=== PATIENT | female | born 1965 | race Caucasian/White ===

== ENCOUNTER 2018-02-27 10:35 | Emergency (ER) | payer BC ==
[~2018-02-27] VITALS: Ht 162.6 cm; Wt 81.2 kg
[~2018-02-27 10:35] MED LIST: AZIT; AZITHROMYCIN250 MG PO; DOXYCYCLINE HY100 MG PO; ESTRADIOL1 MG PO; GLIMEPIRIDE4 MG PO; KLOR-CON 1010 MEQ; LINZESS PO; MAXZIDE1 EA GT; METFORMIN HCL500 M1 PO; METFORMIN HCL500 M3; METFORMIN HCL500 MG PO; PULMICORT1 MG/2 ML; SINGULAIR10 MG PO; SYMBICORT 16010.2 GM INH; THEO PO; XOPENEX HFA15 GM NEB; XYZAL; Z.0.ADVAIR 500/501 E INH; Z.0.JANUVIA100 MG PO; Z.0.NEXIUM40 MG PO; Z.0.XYZAL5 MG PO; [UNRECOGNIZED DRUG - OTHER] MC; [UNRECOGNIZED DRUG - OTHER] PO
[2018-02-27] MEDS ORDERED: ALBUTEROL SULF 0.083% NEB SOLN 3 ML NEB NEB STA (10:37)
[2018-02-27 11:19] LABS: HEMATOCRIT 49.4 % (34.2-44.1); HEMOGLOBIN 16.2 g/dL (12.0-16.0); RED BLOOD COUNT 5.67 x10e6/uL (3.6-5.1)
[2018-02-27 11:20] LABS: BASOPHILS # (AUTO) 0.1 (0.0-0.1); BASOPHILS % 0.3 % (0.0-1.0); EOSINOPHILS % 0.1 % (0.0-6.0); LYMPHOCYTES # (AUTO) 3.9 (1.0-3.2); LYMPHOCYTES % 22.1 % (18.0-39.1); MEAN CORPUSCULAR HEMOGLOBIN 28.6 pg (28-32); MEAN CORPUSCULAR HGB CONC 32.8 g/dL (31-35); MEAN CORPUSCULAR VOLUME 87.1 fL (81-99); MONOCYTES # (AUTO) 1.3 (0.2-0.8); MONOCYTES % 7.4 % (4.4-11.3); NEUTROPHILS # (AUTO) 11.9 (2.1-6.9); NEUTROPHILS % 67.9 % (38.7-80.0); PLATELET COUNT 398 x10e3/uL (140-360); RED CELL DISTRIBUTION WIDTH 13.5 % (11.7-14.4)
[2018-02-27] MEDS ORDERED: METHYLPREDNISOLONE SOD SUCC 125 MG/2ML VIAL IV ONE (11:30)
[2018-02-27] MEDS ORDERED: IPRATROPIUM BROMIDE 0.02% 2.5 ML NEB NEB ONE (11:30)
[2018-02-27 12:38] LABS: ALANINE AMINOTRANSFERASE 29 IU/L (0-55); ALBUMIN 4.2 g/dL (3.5-5.0); ALBUMIN/GLOBULIN RATIO 1.4 (0.8-2.0); ALKALINE PHOSPHATASE 103 IU/L (40-150); ANION GAP 20.7 mmol/L (8-16); BLOOD UREA NITROGEN 36 mg/dL (7-26); BUN/CREATININE RATIO 36 (6-25); CALCIUM 10.2 mg/dL (8.4-10.2); CARBON DIOXIDE 21 mmol/L (22-29); CHLORIDE 105 mmol/L (98-107); CREATINE KINASE 79 IU/L (29-168); CREATININE, SERUM 1.01 mg/dL (0.57-1.11); EST GLOMERULAR FILTRATION RATE 57 ML/MIN (60-); GLUCOSE 110 mg/dL (74-118); POTASSIUM 3.7 mmol/L (3.5-5.1); SODIUM 143 mmol/L (136-145)
--- NOTE | 2018-02-27 13:13 | Diagnostic Imaging Report ---
Examination: Single AP view of the chest. COMPARISON: None. INDICATION: Shortness of breath DISCUSSION: The lungs are well-inflated. No focal airspace consolidation, pleural effusion, or pneumothorax. Cardiomediastinal contour and pulmonary vasculature are within normal limits. No acute osseous abnormality. IMPRESSION: No acute cardiopulmonary abnormality. Signed by: Dr. Edi Luz M.D. on 02/27/2018 1:09 PM
[2018-02-27 13:30] LABS: ALBUMIN 3.9 g/dL (3.5-5.0); ALBUMIN/GLOBULIN RATIO 1.4 (0.8-2.0); ANION GAP 19.9 mmol/L (8-16); CALCIUM 9.7 mg/dL (8.4-10.2); CREATININE, SERUM 1.17 mg/dL (0.57-1.11); POTASSIUM 3.9 mmol/L (3.5-5.1)
[2018-02-27] MEDS ORDERED: ALBUTEROL1.25 MG/3 INH (14:30)
[2018-02-27] MEDS ORDERED: IPRAT-ALBUT 0.5-3 ML INH (14:39)
== END 2018-02-27 15:44 | disposition home or self-care (01) ==
LOC: ER 10:35
DX: R06.00 Dyspnea, unspecified (principal); R06.2 Wheezing; J45.42 Moderate persistent asthma with status asthmaticus
CPT/HCPCS: 36415; 71045; 80053; 82550; 82553; 84484; 85025; 87400; 94640 ×2; 94660; 99284; J2930

== ENCOUNTER → 2018-08-15 | Outpatient (CLI) | payer BC ==
[~2018-08-15] MED LIST changes: +ALBUTEROL1.25 MG/3 INH; +IPRAT-ALBUT 0.5-3 ML INH
--- NOTE | 2018-08-16 09:09 | Diagnostic Imaging Report ---
#[id number] - MGDXBIL #BILATERAL DIGITAL DIAGNOSTIC MAMMOGRAM WITH CAD: 08/15/2018 Comparison is made to exams dated: 12/05/2016 mammogram, 01/01/2018 mammogram, 12/17/2015 mammogram and 06/30/2013 mammogram - [facility]. Current study contains 6 films. There are scattered fibroglandular elements in both breasts. Current study was also evaluated with a Computer Aided Detection (CAD) system. There are benign calcification in both breast. A palpable mass marker is noted in the upper outer aspect of the left breast without corresponding mammographic abnormality. No significant masses, calcifications, or other findings are seen in either breast. There has been no significant interval change. IMPRESSION: BENIGN There is no mammographic evidence of malignancy. A 1 year screening mammogram is recommended. Since the patient feels an abnormality a focused ultrasound exam will follow this study today. Jim Avendaño Jr., D.O. cw/:08/15/2018 15:53:47 Flux Plant Operator: Brittany GOTTI)(Collin), [facility] letter sent: Normal Exam Mammogram BI-RADS: 2 Benign
--- NOTE | 2018-08-16 09:10 | Diagnostic Imaging Report ---
#[id number] - USBRELIMLT ULTRASOUND OF THE LEFT BREAST : 08/15/2018 Comparison is made to exams dated: 08/15/2018 mammogram - [facility] and 01/01/2018 mammogram - [facility]. Color flow and real-time ultrasound were performed on the left breast in the upper outer aspect where the patient feels an abnormality. -There is no cystic or solid mass noted. IMPRESSION: NEGATIVE There is no sonographic evidence of malignancy. A 1 year screening mammogram is recommended. Jim Avendaño Jr., D.O. cw/:08/15/2018 15:59:15 Pinsetter Mechanic Helper: VAHE MATOS RDMS, [facility] letter sent: Normal Exam Ultrasound BI-RADS: 1 Negative
== END ==
LOC: MAMMO 13:19
PROVIDERS: ATTEND Obstetrics & Gynecology
DX: R92.1 Mammographic calcification found on diagnostic imaging of breast (principal)
CPT/HCPCS: 77066

== ENCOUNTER 2019-05-15 10:51 | Emergency (ER) | payer BC ==
[~2019-05-15] VITALS: Ht 157.5 cm; Wt 77.1 kg
--- OUTSIDE RECORDS SUMMARY | 2019-05-15 10:55 | XMS REPORT ---
Author [facility] Address Unknown Phone Unavailable Care Team Providers Care Nurse Sitter Name Role Phone COLLINS MENDOZA Unavailable Unavailable Dayana GIRARD Unavailable Unavailable Payers Payer Name Policy Type Policy Number Effective Date Expiration Date Problems This patient has no known problems. Allergies, Adverse Reactions, Alerts Allergy Name Allergy Type Status Severity Reaction(s) Onset Date Inactive Date Treating Clinician Comments hydrocodone DA Active U 2019-02-27 00:00:00 aspirin DA Active U 2019-02-27 00:00:00 acetaminophen DA Active U 2019-02-27 00:00:00 clavulanic acid DA Active U 2019-02-27 00:00:00 cefuroxime DA Active U 2019-02-27 00:00:00 clarithromycin DA Active U 2019-02-27 00:00:00 amoxicillin DA Active U 2019-02-27 00:00:00 moxifloxacin DA Active U 2019-02-27 00:00:00 hydrocodone DA Active U 2008-07-19 00:00:00 aspirin DA Active U 2008-07-19 00:00:00 acetaminophen DA Active U 2008-07-19 00:00:00 cefuroxime DA Active U 2008-07-19 00:00:00 clarithromycin DA Active U 2008-07-19 00:00:00 ASPIRIN DA Active U 2007-03-25 00:00:00 AUGMENTIN DA Active U 2007-03-25 00:00:00 CODEINE DA Active U 2007-03-25 00:00:00 HYDROCODONE DA Active U 2007-03-25 00:00:00 No Known Contrast Allergies DA Active U 2007-03-25 00:00:00 No Known Food Allergies DA Active U 2007-03-25 00:00:00 No Known Other Allergies DA Active U 2007-03-25 00:00:00 Medications This patient has no known medications. Encounters Start Date/Time End Date/Time Encounter Type Admission Type Attending [facility] Care Department Encounter ID 2019-03-17 08:10:13 Outpatient [facility] [id number] 2019-01-29 15:15:17 Outpatient [facility] [id number] Results Test Description Test Time Test Comments Text Results Atomic Results Result Comments GLUBED 2019-02-27 18:58:00 GLUBED (test code=GLUBED) 229 mg/dL 74-106 Performed by certified anode machine operator at [facility] [id number] 18:39:00* Test Item Value Reference Range Comments GLUBED (test code=GLUBED) 246 mg/dL 74-106 Performed by certified anode machine operator at [facility] [id number] 18:07:00* Test Item Value Reference Range Comments GLUBED (test code=GLUBED) 233 mg/dL 74-106 Performed by certified anode machine operator at [facility] [id number] 18:07:00* Test Item Value Reference Range Comments GLUBED (test code=GLUBED) 195 mg/dL 74-106 Performed by certified anode machine operator at [facility] [id number] 18:07:00* Test Item Value Reference Range Comments GLUBED (test code=GLUBED) 150 mg/dL 74-106 Performed by certified anode machine operator at [facility] [id number] 18:07:00* Test Item Value Reference Range Comments GLUBED (test code=GLUBED) 120 mg/dL 74-106 Performed by certified anode machine operator at [facility] BASIC METABOLIC [id number] 16:42:00* Test Item Value Reference Range Comments SODIUM (test code=NA) 146 mmol/L 136-145 POTASSIUM (test code=K) 3.4 mmol/L 3.5-5.1 CHLORIDE (test code=CL) 106 mmol/L 101-109 CARBON DIOXIDE (test code=CO2) 26.6 mmol/L 21-32 ANION GAP (test code=GAP) 17 mmol/L 10-20 GLUCOSE (test code=GLU) 138 mg/dL 74-106 BLOOD UREA NITROGEN (test code=BUN) 24 mg/dL 3-21 GLOMERULAR FILTRATION RATE (test code=GFR) 57 mL/min >=60 Estimated GFR by using Modified MDRD formula.Chronic kidney disease is defined as either kidney damageor GFR <60 mL/min/1.73 m2 for >3 months. CREATININE (test code=CREAT) 1.01 mg/dL 0.55-1.3 BUN/CREATININE RATIO (test code=BUN/CREA) 23.8 10-20 CALCIUM (test code=CA) 9.1 mg/dL 8.4-10.2 HEPATIC FUNCTION [id number] 16:42:00* Test Item Value Reference Range Comments TOTAL PROTEIN (test code=PROT) 7.0 g/dL 6.5-8.4 ALBUMIN (test code=ALB) 3.9 g/dL 3.4-4.8 GLOBULIN (test code=GLOB) 3.1 G/DL 1-10 ALBUMIN/GLOBULIN RATIO (test code=A/G) 1.26 RATIO 0.75-1.50 BILIRUBIN TOTAL (test code=BILT) 0.30 mg/dL 0.0-1.0 BILIRUBIN DIRECT (test code=BILD) 0.10 mg/dL 0.0-0.30 SGOT/AST (test code=AST) 14 U/L 6-32 SGPT/ALT (test code=ALT) 40 U/L 12-78 Note: Change in REFERENCE RANGE due to new reagent method. ALKALINE PHOSPHATASE TOTAL (test code=ALKP) 106 U/L 38-126 BASIC METABOLIC [id number] 16:41:00* Test Item Value Reference Range Comments SODIUM (test code=NA) 146 mmol/L 136-145 POTASSIUM (test code=K) 3.4 mmol/L 3.5-5.1 CHLORIDE (test code=CL) 106 mmol/L 101-109 CARBON DIOXIDE (test code=CO2) 26.6 mmol/L 21-32 ANION GAP (test code=GAP) 17 mmol/L 10-20 GLUCOSE (test code=GLU) 138 mg/dL 74-106 BLOOD UREA NITROGEN (test code=BUN) 24 mg/dL 3-21 GLOMERULAR FILTRATION RATE (test code=GFR) 57 mL/min >=60 Estimated GFR by using Modified MDRD formula.Chronic kidney disease is defined as either kidney damageor GFR <60 mL/min/1.73 m2 for >3 months. CREATININE (test code=CREAT) 1.01 mg/dL 0.55-1.3 BUN/CREATININE RATIO (test code=BUN/CREA) 23.8 10-20 CALCIUM (test code=CA) 9.1 mg/dL 8.4-10.2 HEPATIC FUNCTION [id number] 16:41:00* Test Item Value Reference Range Comments TOTAL PROTEIN (test code=PROT) gram/dL 6.4-8.2 ALBUMIN (test code=ALB) g/dL 3.4-5.0 GLOBULIN (test code=GLOB) g/dL 2.7-4.2 ALBUMIN/GLOBULIN RATIO (test code=A/G) 0.75-1.50 BILIRUBIN TOTAL (test code=BILT) mg/dL 0.2-1.2 BILIRUBIN DIRECT (test code=BILD) mg/dL 0.0-0.20 SGOT/AST (test code=AST) IUnit/L 15-37 SGPT/ALT (test code=ALT) U/L 10-69 ALKALINE PHOSPHATASE TOTAL (test code=ALKP) IUnit/L 45-117 US BREAST LIMITED [id number] 14:48:00 [place] [address] Patient Name: JAH WALTERS MR #: [id number] : 1965 Age/Sex: 53/F Req #: [id number] Adm Physician: Ordered by: COLLINS MENDOZA MD Report #: [id number] Location: MAMMO Room/Bed: Procedure: [id number] US/U S BREAST LIMITED LEFT Exam Date: Exam Time: REPORT STATUS: Signed #[id number] - USBRELIMLT ULTRASOUND OF THE LEFT BREAST : 08/15/2018 Comparison is made to exams dated: 08/15/2018 mammogram - [facility] and mammogram - [facility]. Color flow and real-time ultrasound were perf ormed on the left breast in the upper outer aspect where the patient feels an abnormality. -There is no cystic or solid mass noted. IMPRE SSION: NEGATIVE There is no sonographic evidence of malignancy. A 1 year screening mammogram is recommended. Jim Avendaño Jr., D.O. cw/:08/15/2018 15:59:15 Buttonhole Marker: VAHE MATOS [facility], [facility] letter sent: Normal Exam Ultrasound BI-RADS: 1 Negative Di ctated By: JIM AVENDAÑO DO 58 COPY TO: COLLINS MENDOZA MAMMOGRAPHY DIGITAL DX [id number] 14:44:00 [place] [address] Patient Name: JAH WALTERS MR #: [id number] : 1965 Age/Sex: 53/F Req #: [id number] Adm Physician: Ordered by: COLLINS MENDOZA MD Report #: [id number] Location: MAMMO Room/Bed: Procedure: [id number] MG/M AMMOGRAPHY DIGITAL DX BILAT Exam Date: 08/15/18 Exam Time: 1355 REPORT STATUS: Signed #[id number] - MGDXBIL #BILATERAL DIGITAL DIAGNOSTIC MAMMOGRAM WITH CAD: 08/15/2018 Comparison is made to exams dated: 12/05/2016 mammogram, 01/01/2018 mammogram, 12/17/2015 mammogram and 06/30/2013 mammogram - [facility] Current udy contains 6 films. There are scattered fibroglandular elements in both br easts. Current study was also evaluated with a Computer Aided Detection (CAD ) system. There are benign calcification in both breast. A palpable mass mar ker is noted in the upper outer aspect of the left breast without correspondi ng mammographic abnormality. No significant masses, calcifications, or othe r findings are seen in either breast. There has been no significant interval change. IMPRESSION: BENIGN There is no mammographic evidence of malignan cy. A 1 year screening mammogram is recommended. Since the patient feels an abnormality a focused ultrasound exam will follow this study today. Cata Avendaño Jr., D.O. cw/:08/15/2018 15:53:47 Imaging Technolog ist: Brittany LOPEZ(R)(M), [facility] letter sent: Normal Exam Mammogram BI-RADS: 2 Benign Dictated By: JIM RAMSEY lectronically Signed By: JIM AVENDAÑO DO on 08/15/18 0051 Transcribed By: RENETTA ASHLEY on 08/15/18 155 COPY TO: COLLINS MENDOZA MD CHEST SINGLE (PORTABLE)2018-02-27 13:07:00 [place] [address] Patient Name: JAH WALTERS MR #: [id number] : 1965 Age/Sex: 52/F Req #: [id number] Adm Physician: Ordered by: PACO GIRARD MD Report #: [id number] Location: ER Room/Bed: Procedure: [id number] DX/CHEST SINGLE (PORTABLE) E xam Date: 02/27/18 Exam Time: 1235 REPORT STATU S: Signed Examination: Single AP view of the chest. COMPARISON: None. INDICATION: Shortness of breath DISCUSSION: The lungs are well- inflated. No focal airspace consolidation, pleural effusion, or pneumothorax. Cardiomediastinal contour and pulmonary vasculature are within normal limits. No acute osseous abnormality. IMPRESSION: No acute cardiopulmonary a bnormality. Signed by: Dr. Collins Pak M.D. on 02/27/2018 1:09 PM Dictated By: COLLINS PAK MD 1304 Transcribed By: DELORES on 02/27/18 1309 COPY TO: PACO GIRARD MD
--- OUTSIDE RECORDS SUMMARY | 2019-05-15 10:55 | XMS REPORT | Summary of Care ---
Author Author DANIELITO Gutierres, ABE Em Unknown Address Unknown Phone Unavailable Care Team Providers Care Circular Sawyer Stone Name Role Phone AUGUSTINE P.Edmund., SHONDA Unavailable Unavailable DANIELITO Gutierres, ABE Unavailable Unavailable COURTNEY N.P., ERIC Unavailable Unavailable KENNA Sanchez, RITA Unavailable Unavailable ABIGAIL Sanchez, NEAL Unavailable Unavailable OLU N.P., TEVIN Unavailable Unavailable ASHER Sanchez, MICHELL Unavailable Unavailable KENNA BECKER IA, RITA COOPER Unavailable Unavailable Rell BECKER, Erasmo Unavailable Unavailable ASHER BECKER IA, MICHELL CLARKE Unavailable Unavailable AUGUSTINE BOLTON, SHONDA Unavailable Unavailable Abigail BECKER, Neal Unavailable Unavailable CATERINA BECKER, STARLA Anne Unavailable Unavailable MARCEL LINTON MD, COLLINS Shaffer Unavailable Unavailable ANDREA SERNA, JANIA Ybarra Unavailable Unavailable Unavailable Unavailable Functional Status Name Dates Details Functional status health issues are not documented Status: Name Dates Details Cognitive status health issues are not documented Status: Problems Name Dates Details Cystocele, midline (618.01, N81.11) Status: Active Alopecia (704.00, L65.9) Status: Active Diverticulitis of rectosigmoid (562.11, K57.32) Status: Active Financial difficulties (V60.2, Z59.8) Status: Active Abnormal thyroid function test (794.5, R94.6) Status: Active Hypercalcemia (275.42, E83.52) Status: Active Leukocytosis (288.60, D72.829) Status: Active Need for influenza vaccination (V04.81, Z23) Status: Active Herpes simplex virus infection (054.9, B00.9) Status: Active Anxiety (300.00, F41.9) Status: Active Non compliance with medical treatment (V15.81, Z91.19) Status: Active Hypokalemia (276.8, E87.6) Status: Active Edema (782.3, R60.9) Status: Active COPD, moderate (496, J44.9) Status: Active BMI 32.0-32.9,adult (V85.32, Z68.32) Status: Active Vitamin D deficiency (268.9, E55.9) Status: Active Vitamin B12 deficiency (266.2, E53.8) Status: Active Right knee pain (719.46, M25.561) Status: Active Rotator cuff tear arthropathy (716.81, M75.100) Status: Active GERD (gastroesophageal reflux disease) (530.81, K21.9) Status: Active Patellofemoral pain syndrome of right knee (719.46, M22.2X1) Status: Active Hypertension (401.9, I10) Status: Active Loose body of right knee (717.6, M23.41) Status: Active Psoriasis (696.1, L40.9) Status: Active Hematuria (599.70, R31.9) Status: Active 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, 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) Status: Active Maltracking of right patella (719.86, M22.8X1) Status: Active Pelvic pain in female (625.9, R10.2) Status: Active Irritable bowel syndrome with constipation (564.1, K58.1) Status: Active Dysuria (788.1, R30.0) Status: Active Dyspareunia, female (625.0, N94.10) Status: Active Vaginal atrophy (627.3, N95.2) Status: Active SUSHMA (stress urinary incontinence, female) (625.6, N39.3) Status: Active Increased frequency of urination (788.41, R35.0) Status: Active Interstitial cystitis (595.1, N30.10) Status: Active Vestibulitis, vulvar (625.71, N94.810) Status: Active Rectocele, female (618.04, N81.6) Status: Active Constipation (564.00, K59.00) Status: Active BMI 31.0-31.9,adult (V85.31, Z68.31) Status: Active Acute maxillary sinusitis (461.0, J01.00) Status: Active Mild intermittent asthma with acute exacerbation (493.92, J45.21) Status: Active Acute bacterial bronchitis (466.0, J20.8) Status: Active Yeast vaginitis (112.1, B37.3) Status: Active Urgency of urination (788.63, R39.15) Status: Active Diabetes mellitus (250.00, E11.9) Status: Active Cervical neck pain with evidence of disc disease (722.91, M50.90) Status: Active Pain and numbness of right upper extremity (729.5, M79.601) Status: Active Medications Name Dates Details metFORMIN HCl ER 500 MG Oral Tablet Extended Release 24 Hour TAKE 2 TABLETS TWICE A DAY WITH BREAKFAST AND DINNER Quantity: 360 MICHELL STERLING M.D. * Start : 22-Dec-2014 Active Ventolin HFA 108 (90 Base) MCG/ACT Inhalation Aerosol Solution INHALE 1 TO 2 PUFFS EVERY 4 TO 6 HOURS NEEDED. * Quantity: 1 Refills: 0 ESTEVES N.P., ABE * Start : 08-May-2014 Active 18 GM Inhaler Symbicort 160-4.5 MCG/ACT Inhalation Aerosol INHALE 2 PUFFS TWICE DAILY. RINSE MOUTH AFTER USE. * Quantity: 1 Refills: 5 RAINES N.P., TEVIN * Start : 09-Oct-2013 Active 10.2 GM Inhaler Clobetasol Propionate 0.05 % External Foam APPLY SPARINGLY TO AFFECTED AREA(S) TWICE DAILY * Quantity: 1 Refills: 1 RAINES N.P., TEVIN * Start : 06-Apr-2015 Active 100 GM Can Montelukast Sodium 10 MG Oral Tablet TAKE 1 TABLET BY MOUTH ONCE A DAY * Quantity: 90 Refills: 3 AUGUSTINE P.A., SHONDA * Start : 07-Jun-2017 Active Budesonide 1 MG/2ML Inhalation Suspension USE 1 UNIT DOSE VIA NEBULIZER TWICE DAILY * Quantity: 180 Refills: 2 AUGUSTINE P.A., SHONDA * Start : 21-Oct-2015 Active 30 x 2 ML Plas Cont Levalbuterol HCl - 1.25 MG/0.5ML Inhalation Nebulization Solution TAKE 1 VIAL IN NEBULIZER 3 TIMES A DAY. * Quantity: 3 Refills: 3 AUGUSTINE P.A., SHONDA * Start : 21-Oct-2015 Active 30 Milliliter Plas Cont Clotrimazole-Betamethasone 1-0.05 % External Cream APPLY AND RUB IN A THIN FILM TO AFFECTED AREAS TWICE DAILY.(AM AND PM). * Quantity: 1 Refills: 2 AUGUSTINE P.ASHONDA Vogt * Start : 30-Aug-2017 Active 45 GM Tube Fluticasone Propionate 50 MCG/ACT Nasal Suspension USE 2 SPRAYS IN EACH NOSTRIL ONCE DAILY * Quantity: 1 Refills: 6 COURTNEY Devine.ERIC Izaguirre * Start : 16-Mar-2017 Active 9.9 ML Bottle Fasenra 30 MG/ML Subcutaneous Solution Prefilled Syringe * Refills: 0 * Start : 01-Nov-2017 Active Milliliter Sucralfate 1 GM Oral Tablet TAKE 1 TABLET EVERY 12 HOURS DAILY. * Quantity: 30 Refills: 1 RITA PIERSON M.D. * Start : 15-Mar-2018 Active Triamterene-HCTZ 37.5-25 MG Oral Tablet TAKE 1 TABLET BY MOUTH EVERY DAY. NEED OV * Quantity: 30 Refills: 2 AUGUSTINE Henning.ASHONDA Vogt Active OneTouch Verio w/Device Kit use to check blood sugar as directed * Quantity: 1 Refills: 0 MICHELL STERLING M.D. * Start : 21-Aug-2018 Active Ipratropium-Albuterol 0.5-2.5 (3) MG/3ML Inhalation Solution USE 1 UNIT DOSE VIA NEBULIZER THREE TIMES DAILY. * Quantity: 1 Refills: 2 OLU Devine.TEVIN Izaguirre * Start : 16-Mar-2017 Active 60 x 3 ML Plas Cont raNITIdine HCl - 150 MG Oral Tablet TAKE 1 TABLET BY MOUTH TWICE DAILY * Quantity: 60 Refills: 3 NEAL HAYES M.D. * Start : 02-Sep-2018 Active Tums Ultra 1000 1000 MG Oral Tablet Chewable 1 PO QD * Refills: 0 MICHELL STERLING M.D. * Start : 12-Sep-2018 Active Vitamin D 1000 UNIT TABS TAKE 1 TABLET DAILY. * Quantity: 90 Refills: 1 MICHELL STERLING M.D. * Start : 12-Sep-2018 Active Vitamin B-12 1000 MCG Oral Tablet TAKE 1 TABLET ONCE A WEEK * Quantity: 90 Refills: 1 MICHELL STERLING M.D. * Start : 12-Sep-2018 Active Lansoprazole 30 MG Oral Capsule Delayed Release TAKE ONE CAPSULE DAILY FOR ACID REFLUX * Quantity: 90 Refills: 1 SHONDA FIGUEROA * Start : 24-Jun-2018 Active Meloxicam 15 MG Oral Tablet TAKE 1 TABLET DAILY NEEDED. * Quantity: 30 Refills: 1 SHONDA FIGUEROA * Start : 02-Oct-2018 Active Cyclobenzaprine HCl - 10 MG Oral Tablet TAKE 1 TABLET AT BEDTIME NEEDED. * Quantity: 30 Refills: 1 SHONDA FIGUEROA * Start : 02-Oct-2018 Active Linzess 290 MCG Oral Capsule TAKE 1 CAPSULE DAILY * Quantity: 90 Refills: 3 NEAL HAYES M.D. * Start : 02-Sep-2018 Active Lactulose 10 GM/15ML Oral Solution TAKE 15 ML DAILY. * Quantity: 1350 Refills: 3 NEAL HAYES M.D. * Start : 13-Feb-2018 Active Mometasone Furoate 50 MCG/ACT Nasal Suspension USE 1 SPRAY IN EACH NOSTRIL TWICE DAILY. * Quantity: 1 Refills: 6 OLU N.PTEVIN Vogt * Start : 28-Jan-2019 Active 17 GM Inhaler Albuterol Sulfate (2.5 MG/3ML) 0.083% Inhalation Nebulization Solution USE 1 UNIT DOSE IN NEBULIZER EVERY 4 TO 6 HOURS NEEDED. * Quantity: 6 Refills: 1 SHONDA FIGUEROA * Start : 02-Feb-2017 Active 60 x 3 ML Plas Cont Ipratropium [place] 0.02 % Inhalation Solution USE 1 UNIT DOSE IN NEBULIZER FOUR TIMES A DAY * Quantity: 6 Refills: 1 SHONDA FIGUEROA * Start : 05-Feb-2019 Active 60 x 2.5 ML Vial Glimepiride 4 MG Oral Tablet 1/2 tablet-1 tablet po bid before breakfast and dinner * Quantity: 180 Refills: 1 MICHELL STERLING M.D. * Start : 28-Mar-2017 Active Lisinopril 5 MG Oral Tablet 1 tablet po qd * Quantity: 90 Refills: 1 MICHELL STERLING M.D. * Start : 08-Oct-2017 Active NovoLOG FlexPen 100 UNIT/ML Subcutaneous Solution Pen-injector inject tid ac using correction factor 1:40 with target 120:MDD 15u * Quantity: 1 Refills: 1 MICHELL STERLING M.D. * Start : 10-Mar-2018 Active 5 x 3 ML Pen Pioglitazone HCl - 15 MG Oral Tablet Take 2-3 tablets a day for blood sugar * Quantity: 270 Refills: 1 ASHER Sanchez, MICHELL * Start : 25-Feb-2018 Active OneTouch Delica Plus [id number] use to check blood sugars 4x/day * Quantity: 3 Refills: 1 ASHER Sanchez, MICHELL * Start : 21-Aug-2018 Active 100 Unit Box Jardiance 10 MG Oral Tablet TAKE 1 TABLET BY MOUTH ONCE DAILY * Quantity: 90 Refills: 1 ASHER Sanchez, MICHELL * Start : 23-Sep-2018 Active OneTouch Verio In Vitro Strip use to check blood sugar 4x/day * Quantity: 3 Refills: 1 ASHER Sanchez, MICHELL * Start : 21-Aug-2018 Active 100 Strip Box Trulicity 0.75 MG/0.5ML Subcutaneous Solution Pen-injector inject 0.75 mg sq qweek * Quantity: 3 Refills: 1 MICHELL STERLING M.D. * Start : 23-Sep-2018 Active 4 x 0.5 ML Pen BD Pen Needle Bettye U/F 32G X 4 MM use to inject insulin 3x/day sq * Quantity: 3 Refills: 1 ASHER Sanchez, MICHELL * Start : 12-Feb-2019 Active 100 Unit Box Ibuprofen 600 MG Oral Tablet * Refills: 0 Active Meloxicam 15 MG Oral Tablet TAKE 1 TABLET BY MOUTH DAILY WITH FOOD * Quantity: 30 Refills: 1 RAINES N.P., TEVIN * Start : 03-Dec-2018 Active Allergies and Adverse Reactions Name Dates Details Aspirin TABS (Allergy) Status: Active Augmentin TABS (Allergy) Status: Active Avelox TABS (Allergy) Status: Active Biaxin TABS (Allergy) Status: Active cefdinir (Adverse Event) Status: Active Codeine Sulfate SOLN (Allergy) Status: Active Vicodin TABS (Allergy) Status: Active Past Medical History Name Dates Details History of acute gastritis (V12.70, Z87.19) Status: Resolved History of alopecia (V13.89, Z87.898) Status: Resolved History of Asthma exacerbation (493.92, J45.901) Status: Resolved History of Calcaneal spur (726.73, M77.30) Status: Resolved History of Calcium oxalate crystals in urine (791.9, R82.998) Status: Resolved History of Diabetes mellitus, type 2 (250.00, E11.9) Status: Resolved History of dysuria (V13.00, Z87.898) Status: Resolved History of External hemorrhoids (455.3, K64.4) Status: Resolved History of fatigue (V13.89, Z87.898) Status: Resolved History of Gallbladder disease (575.9, K82.9) Status: Resolved History of gastroenteritis (V12.79, Z87.19) Status: Resolved History of Leg cramps (729.82, R25.2) Status: Resolved History of Lower abdominal pain of unknown etiology (789.09, R10.30) Status: Resolved History of Numbness and tingling (782.0, R20.0) Status: Resolved History of Occipital neuralgia of right side (723.8, M54.81) Status: Resolved History of Pain in joint of left shoulder (719.41, M25.512) Status: Resolved History of painful urination (V13.89, Z87.898) Status: Resolved History of pneumococcal vaccination (V49.89, Z92.29) Status: Resolved History of psoriasis (V13.3, Z87.2) Status: Resolved History of Right shoulder pain (719.41, M25.511) Status: Resolved History of sinusitis (V12.69, Z87.09) Status: Resolved History of Tear of right rotator cuff, unspecified tear extent (840.4, M75.101) Status: Resolved History of Tendinitis of right rotator cuff (726.10, M75.81) Status: Resolved History of Tension type headache (339.10, G44.209) Status: Resolved Procedures Procedure Dates Details Post Op Promis 29 Survey Date: 21-Jan-2019 [[facility]] CMP W/EGFR Date: 14-Mar-2019 MRI Spine cervical wo contrast 10611 Date: 18-Mar-2019 MRI Spine cervical wo contrast 88283 Date: 18-Mar-2019 History of Hysterectomy Completed History of Sinus Surgery Completed History of Cholecystectomy Completed History of Knee surgery Completed Immunization Name Dates Details Prevnar 13 Intramuscular Suspension Lot #: [id number] on: 15-Mar-2018 Fluzone Quadrivalent 0.5 ML Intramuscular Suspension Lot #: [id number] on: 15-Mar-2018 Tdap Lot #: [id number] on: 09-Sep-2018 Family History Name Dates Details Family history of myocardial infarction (V17.3, Z82.49) Status: Active Family history of cardiac pacemaker (V17.49, Z82.49) Status: Active Family history of hypertension (V17.49, Z82.49) Status: Active Family history of diabetes mellitus (V18.0, Z83.3) Status: Active Name Dates Details Family history of Lung Cancer (V16.1) Status: Active Name Dates Details Family history of malignant neoplasm of breast (V16.3, Z80.3) Status: Active Family history of diabetes mellitus (V18.0, Z83.3) Status: Active Social History Name Dates Details - Status: Name Dates Details Never smoker Vital Signs Date Test Result Details [id number] BP Systolic 110 mm[Hg] Status: Comments: Location: LUE; Position: Sitting BP Diastolic 70 mm[Hg] Status: Comments: Location: LUE; Position: Sitting Height 62 in Status: Weight 175 lb Status: Body Mass Index Calculated 32.01 kg/m2 Status: Body Surface Area Calculated 1.81 m2 Status: Temperature 97 f Status: Comments: Method: Temporal Heart Rate 90 /min Status: Respiration Rate 16 /min Status: Physical Findings 7.5 Status: Comments: Pain Scale Results Date Description Value Details Results not documented Plan of Care Name Dates Details Planned Observations Planned Goals not documented Planned Encounters Appointment; JANIA MENDEZ D.O. On: 31-Mar-2019 9:20 Appointment; COLLINS ROD M.D. On: 31-Mar-2019 9:30 Appointment; MICHELL STERLING M.D. On: 14-May-2019 9:00 Appointment; NEAL HAYES M.D. On: 28-Nov-2019 13:15 Appointment; ERASMO RO M.D. On: 09-Dec-2019 12:20 Instructions Name Dates Details Instructions not documented Encounters Appointment; ERROL CO[address]MAN [address] Encounter Diagnosis: Problem not documented On: 20-Mar-2017 10:00 Appointment; MICHELL STERLING M.D. Encounter Diagnosis: Problem not documented On: 28-Mar-2017 9:20 Appointment; MICHELL STERLING M.D. Encounter Diagnosis: Problem not documented On: 23-Apr-2017 9:00 Appointment; SHONDA BRADSHAW P.A. Encounter Diagnosis: Problem not documented On: 26-Apr-2017 9:30 Appointment; MICHELL STERLING M.D. Encounter Diagnosis: Problem not documented On: 08-May-2017 9:00 Appointment; SHONDA BRADSHAW P.ASin Encounter Diagnosis: Problem not documented On: 23-May-2017 9:30 Appointment; SHONDA BRADSHAW P.ASin Encounter Diagnosis: Problem not documented On: 29-May-2017 15:00 Appointment; MICHELL STERLING M.D. Encounter Diagnosis: Problem not documented On: 06-Jun-2017 10:40 Appointment; ERROL COLEMAN RD Encounter Diagnosis: Problem not documented On: 05-Jul-2017 10:00 Appointment; MICHELL STERLING M.D. Encounter Diagnosis: Problem not documented On: 14-Aug-2017 10:00 Appointment; SHONDA BRADSHAW PSinASin Encounter Diagnosis: Problem not documented On: 30-Aug-2017 8:30 Appointment; SHONDA BRADSHAW PSinASin Encounter Diagnosis: Problem not documented On: 12-Sep-2017 10:30 Appointment; MIKE WILLIS P.A. Encounter Diagnosis: Problem not documented On: 18-Sep-2017 8:30 Appointment; ERASMO RO M.D. Encounter Diagnosis: Problem not documented On: 25-Sep-2017 10:40 Appointment; MICHELL STERLING M.D. Encounter Diagnosis: Problem not documented On: 08-Oct-2017 8:40 Appointment; NEAL HAYES M.D. Encounter Diagnosis: Problem not documented On: 22-Oct-2017 9:15 Appointment; ERIC VALDEZ NP Encounter Diagnosis: Problem not documented On: 26-Oct-2017 12:15 Appointment; AMADOR WASHINGTON D.O. Encounter Diagnosis: Problem not documented On: 01-Nov-2017 14:30 Appointment; MICHELL STERLING M.D. Encounter Diagnosis: Problem not documented On: 21-Nov-2017 16:00 Appointment; MICHELL STERLING M.D. Encounter Diagnosis: Problem not documented On: 15-Jan-2018 9:40 Appointment; AZAM CASTELLON M.D. Encounter Diagnosis: Problem not documented On: 30-Jan-2018 14:00 Appointment; JAMMIE SOTO M.D. Encounter Diagnosis: Problem not documented On: 31-Jan-2018 9:00 Appointment; ERASMO RO M.D. Encounter Diagnosis: Problem not documented On: 05-Feb-2018 13:00 Appointment; MIKE WILLIS P.A. Encounter Diagnosis: Problem not documented On: 13-Feb-2018 13:30 Appointment; [facility] Encounter Diagnosis: Problem not documented On: 18-Feb-2018 8:30 Appointment; NEAL HAYES M.D. Encounter Diagnosis: Problem not documented On: 20-Feb-2018 9:00 Appointment; ERASMO RO M.D. Encounter Diagnosis: Problem not documented On: 26-Feb-2018 10:00 Appointment; SHONDA BRADSHAW PJessica Encounter Diagnosis: Problem not documented On: 28-Feb-2018 15:00 Appointment; SHONDA BRADSHAW PSinASin Encounter Diagnosis: Problem not documented On: 04-Mar-2018 9:45 Appointment; ERASMO RO M.D. Encounter Diagnosis: Problem not documented On: 06-Mar-2018 14:20 Appointment; SHONDA BRADSHAW PSinASin Encounter Diagnosis: Problem not documented On: 06-Mar-2018 16:00 Appointment; MICHELL STERLING M.D. Encounter Diagnosis: Problem not documented On: 12-Mar-2018 9:20 Appointment; RITA PIERSON M.D. Encounter Diagnosis: Problem not documented On: 15-Mar-2018 9:00 Appointment; RITA PIERSON M.D. Encounter Diagnosis: Problem not documented On: 18-Mar-2018 8:15 Appointment; ERIC VALDEZ NP Encounter Diagnosis: Problem not documented On: 22-Mar-2018 9:15 Appointment; MICHELL STERLING M.D. Encounter Diagnosis: Problem not documented On: 03-Apr-2018 13:40 Appointment; ERIC VALDEZ NP Encounter Diagnosis: Problem not documented On: 19-Apr-2018 9:00 Appointment; SHONDA BRADSHAW PSinASin Encounter Diagnosis: Problem not documented On: 25-Apr-2018 8:45 Appointment; MICHELL STERLING M.D. Encounter Diagnosis: Problem not documented On: 08-May-2018 9:00 Appointment; ABE ESTEVES NP Encounter Diagnosis: Problem not documented On: 08-Jun-2018 11:15 Appointment; MICHELL STERLING M.D. Encounter Diagnosis: Problem not documented On: 12-Jun-2018 9:00 Appointment; SHONDA BRADSHAW P.ASin Encounter Diagnosis: Problem not documented On: 12-Jun-2018 14:00 Appointment; SHONDA BRADSHAW PSinASin Encounter Diagnosis: Problem not documented On: 17-Jun-2018 13:00 Appointment; SHONDA BRADSHAW P.ASin Encounter Diagnosis: Problem not documented On: 24-Jun-2018 9:30 Appointment; SHONDA BRADSHAW PSinASin Encounter Diagnosis: Problem not documented On: 26-Jun-2018 10:30 Appointment; NEAL HAYES M.D. Encounter Diagnosis: Problem not documented On: 19-Aug-2018 9:45 Appointment; ERASMO RO M.D. Encounter Diagnosis: Problem not documented On: 20-Aug-2018 10:40 Appointment; TEVIN RAINES NP Encounter Diagnosis: Problem not documented On: 28-Aug-2018 15:45 Appointment; NEAL HAYES M.D. Encounter Diagnosis: Problem not documented On: 02-Sep-2018 10:00 Appointment; NIMISHA HOGAN P.A. Encounter Diagnosis: Problem not documented On: 09-Sep-2018 9:15 Appointment; MICHELL STERLING M.D. Encounter Diagnosis: Problem not documented On: 11-Sep-2018 9:00 Appointment; SHONDA BRADSHAW PSinASin Encounter Diagnosis: Problem not documented On: 13-Sep-2018 10:15 Appointment; LILIANA LAWRENCE Encounter Diagnosis: Problem not documented On: 19-Sep-2018 9:00 Appointment; SHONDA BRADSHAW PSinASin Encounter Diagnosis: Problem not documented On: 02-Oct-2018 9:15 Appointment; NEAL HAYES M.D. Encounter Diagnosis: Problem not documented On: 07-Oct-2018 9:00 Appointment; SHONDA BRADSHAW P.A. Encounter Diagnosis: Problem not documented On: 15-Oct-2018 9:15 Appointment; SHONDA BRADSHAW P.A. Encounter Diagnosis: Problem not documented On: 31-Oct-2018 13:15 Appointment; NEAL HAYES M.D. Encounter Diagnosis: Problem not documented On: 18-Nov-2018 8:45 Appointment; COLLINS ROD M.D. Encounter Diagnosis: Problem not documented On: 19-Nov-2018 10:15 Appointment; COLLINS ROD M.D. Encounter Diagnosis: Problem not documented On: 03-Dec-2018 10:00 Appointment; MICHELL STERLING M.D. Encounter Diagnosis: Problem not documented On: 11-Dec-2018 9:40 Appointment; ERASMO RO M.D. Encounter Diagnosis: Problem not documented On: 13-Dec-2018 11:00 Appointment; COLLINS ROD M.D. Encounter Diagnosis: Problem not documented On: 24-Dec-2018 11:45 Appointment; COLLINS ROD M.D. Encounter Diagnosis: Problem not documented On: 26-Dec-2018 9:30 Appointment; TEVIN RAINES NP Encounter Diagnosis: Problem not documented On: 27-Dec-2018 15:30 Appointment; SHONDA BRADSHAW P.A. Encounter Diagnosis: Problem not documented On: 01-Jan-2019 14:30 Appointment; TEVIN RAINES NP Encounter Diagnosis: Problem not documented On: 02-Jan-2019 14:45 Appointment; SHONDA BRADSHAW P.A. Encounter Diagnosis: Problem not documented On: 06-Jan-2019 13:30 Appointment; COLLINS ROD M.D. Encounter Diagnosis: Problem not documented On: 08-Jan-2019 7:00 Appointment; COLLINS ROD M.D. Encounter Diagnosis: Problem not documented On: 09-Jan-2019 9:45 Appointment; COLLINS ROD M.D. Encounter Diagnosis: Problem not documented On: 16-Jan-2019 13:00 Appointment; JANIA MENDEZ D.O. Encounter Diagnosis: Problem not documented On: 27-Jan-2019 11:30 Appointment; ABIGAIL, NEAL, M.D. Encounter Diagnosis: Problem not documented On: 27-Jan-2019 14:00 Appointment; TEVIN RAINES NP Encounter Diagnosis: Problem not documented On: 28-Jan-2019 14:15 Appointment; TEVIN RAINES NP Encounter Diagnosis: Problem not documented On: 31-Jan-2019 15:45 Appointment; SHONDA BRADSHAW P.A. Encounter Diagnosis: Problem not documented On: 05-Feb-2019 13:00 Appointment; COLLINS ROD M.D. Encounter Diagnosis: Problem not documented On: 06-Feb-2019 10:00 Appointment; JANIA MENDEZ D.O. Encounter Diagnosis: Problem not documented On: 12-Feb-2019 8:30 Appointment; MICHELL STERLING M.D. Encounter Diagnosis: Problem not documented On: 12-Feb-2019 9:00 Appointment; JANIA MENDEZ D.O. Encounter Diagnosis: Problem not documented On: 24-Feb-2019 9:00 Appointment; COLLINS ROD M.D. Encounter Diagnosis: Problem not documented On: 24-Feb-2019 9:30 Appointment; TEVIN RAINES NP Encounter Diagnosis: Problem not documented On: 14-Mar-2019 13:30
--- NOTE | 2019-05-15 11:20 | NUR ---
DR VEE IN ROOM FOR HEMOCULT TEST, NURSE AT BEDSIDE, PT TOLERATED WELL.
[2019-05-15] MEDS ORDERED: SODIUM CHLORIDE 0.9% 1000ML 1,000 ML IV SCH (11:45)
--- NOTE | 2019-05-15 11:45 | NUR ---
After Dr. Dixon put orders into computer. I attempted to get the EKG. As soon as I stepped into the patients room with the machine. She told me to leave until she could finish her phone call. I left and reported what happened to the nurse and doctor.
--- NOTE | 2019-05-15 12:24 | NUR ---
PT STATED SHE WANTS TO GO SEE HER DOCTOR TOMORROW, PT IS REFUSING ALL TREATMENTS AND TEST, PT STATED SHE THOUGHT WE WERE AN URGENT CARE AND SHE CALLED HER DOCTOR AND IS GOING TO SEE HIM TOMORROW, DR WATKINS NOTIFIED, PT SIGNED AMA, PLACED IN CHART.
== END 2019-05-15 12:23 | disposition left against medical advice (07) ==
LOC: FSED 10:51
DX: R10.84 Generalized abdominal pain (principal); K59.00 Constipation, unspecified
CPT/HCPCS: 99283

== ENCOUNTER → 2020-05-05 | Outpatient (CLI) | payer BC | LOC: MAMMO 12:03 | PROVIDERS: ATTEND Surgery | DX: N63.20 Unspecified lump in the left breast, unspecified quadrant (principal) | CPT/HCPCS: 77066 ==